=== PATIENT | female | born 1940 | race Caucasian/White ===

== ENCOUNTER 2016-12-17 09:33 | Emergency (ER) | payer MEDICARE, MEDICAID ==
[2016-12-17 09:37] VITALS: BMI 25.4
[2016-12-17 09:47] VITALS: O2SAT 99
[2016-12-17] MEDS ORDERED: Albuterol-Ipratrop 3 mg / 0.5 (3 ml) UD ONE (10:09)
[2016-12-17] MEDS ORDERED: Sodium Chloride 0.9% 500 ML IV ONE ×2 (10:14→10:37)
[2016-12-17] MEDS ORDERED: Albuterol-Ipratrop 3 mg / 0.5 (3 ml) UD INH STA (10:17)
[2016-12-17 10:34] LABS: BASO # 0.1 K/uL (0.0-0.2); EOS % 0.4 % (0.0-4.0); HEMATOCRIT 40.1 % (34.0-47.0); LYMPH # 1.4 K/uL (1.0-4.3); LYMPH % 14.9 % (20.0-40.0); MEAN CELL VOLUME 98.7 fL (81.0-99.0); MEAN CORPUSCULAR HEMOGLOBIN 33.2 pg (27.0-31.0); MEAN CORPUSCULAR HGB CONC 33.6 g/dL (33.0-37.0); MONO # 0.4 K/uL (0.0-0.8); MONO % 4.6 % (0.0-10.0); RED CELL DISTRIBUTION WIDTH 13.2 % (11.5-14.5); WHITE BLOOD COUNT 9.4 K/uL (4.8-10.8)
[2016-12-17 10:41] LABS: CHLORIDE 96 mmol/L (98-107)
[2016-12-17 10:42] LABS: POTASSIUM 3.7 mmol/L (3.6-5.2); SODIUM 135 mmol/L (132-148)
[2016-12-17 10:44] LABS: ALB/GLOB RATIO 1.1 (1.0-2.1); ALKALINE PHOSPHATASE 117 U/L (38-126); AST/SGOT 65 U/L (14-36); BILIRUBIN,TOTAL 0.4 mg/dL (0.2-1.3); CARBON DIOXIDE 24 mmol/L (22-30); GFR AFRICAN-AMERICAN > 60; TOTAL PROTEIN 7.6 g/dL (6.3-8.3)
[2016-12-17 10:45] LABS: ALT/SGPT 89 U/L (9-52); BLOOD UREA NITROGEN 10 mg/dL (7-17); CALCIUM 8.5 mg/dl (8.6-10.4); GLUCOSE,RANDOM 300 mg/dL (65-105)
[2016-12-17 11:24] LABS: RBC URINE 1 /hpf (0-3); URINE BILIRUBIN NEGATIVE (NEGATIVE); URINE BLOOD NEGATIVE (NEGATIVE); URINE COLOR Yellow (YELLOW); URINE GLUCOSE (UA) 3+ mg/dL (Normal); URINE KETONE NEGATIVE (NEGATIVE); URINE LEUKOCYTE ESTERASE NEG Leu/uL (Negative); URINE PROTEIN NEGATIVE (NEGATIVE); URINE UROBILINOGEN NORMAL mg/dL (0.2-1.0); WBC URINE 1 /hpf (0-5)
--- NOTE | 2016-12-17 12:05 | C.PDOC ---
History Of Present Illness 76-year-old female, PMHx includes Hypertension, Bronchitis, Diabetes and Pneumonia, presents to the emergency department accompanied by son (acting as tester food products) with complaints of cough and congestion for the past three days. Patient states she has a Hx of bronchitis and her current symptoms feel similar. Denies fevers or chest pain. Time Seen by Provider: 12/17/16 10:05 Chief Complaint (Nursing): Back Pain History Per: Patient, Family, Maple Syrup Maker (Son, and RN Ruth) History/Exam Limitations: language barrier Onset/Duration Of Symptoms: Days Current Symptoms Are (Timing): Still Present Past Medical History Reviewed: Historical Data, Nursing Documentation, Vital Signs Vital Signs: Last Vital Signs Temp 98.5 F 12/17/16 12:00 Pulse 80 12/17/16 12:00 Resp 18 12/17/16 12:00 BP 132/87 12/17/16 12:00 Pulse Ox 99 12/17/16 12:40 - Medical History PMH: Bronchitis, Diabetes, HTN, Pneumonia Family History: States: Unknown Family Hx - Social History Hx Tobacco Use: No Hx Alcohol Use: No Hx Substance Use: No - Immunization History Hx Tetanus Toxoid Vaccination: Yes Hx Influenza Vaccination: Yes Hx Pneumococcal Vaccination: Yes Review Of Systems Except As Marked, All Systems Reviewed And Found Negative. Constitutional: Negative for: Fever ENT: Positive for: Nose Congestion Cardiovascular: Negative for: Chest Pain Respiratory: Positive for: Cough, Shortness of Breath Gastrointestinal: Negative for: Nausea, Vomiting Musculoskeletal: Negative for: Back Pain Physical Exam - Physical Exam Appears: Non-toxic, No Acute Distress Skin: Warm, Dry, No Rash Head: Atraumatic, Normacephalic Eye(s): bilateral: Normal Inspection, EOMI Nose: Normal Oral Mucosa: Moist Lips: Normal Appearing Throat: Normal, No Erythema, No Exudate, No Drooling Neck: Normal ROM, Supple Chest: Symmetrical Cardiovascular: Rhythm Regular Respiratory: No Accessory Muscle Use, Rhonchi, Other (intermittent cough) Gastrointestinal/Abdominal: Soft, No Tenderness Back: No CVA Tenderness, No Vertebral Tenderness Extremity: Normal ROM Neurological/Psych: Oriented x3, Normal Speech ED Course And Treatment - Laboratory Results Result Diagrams: 12/17/16 10:27 12/17/16 10:27 ECG: Interpreted By Me, Viewed By Me ECG Rhythm: Sinus Rhythm ECG Interpretation: No Acute Changes Rate From EC O2 Sat by Pulse Oximetry: 99 Progress Note: Plan: EKG. Chest X-Ray. Duoneb, IVF. Urine Culture. Progress : Patient feels better after treatment. On re-evaluated, patients lungs are CTA B/L. Patient was offered admission for further nebulizers, but she is refusing at this time. Son and Maple Syrup Maker used to translate. Patient persists to refuse. Patient instructed to return for any new or worsening symptoms. All questions were answered. Pt and son agreeable with plan. Case discussed and pt evaluated by Dr Baker, agreed upon plan and discharge. Disposition - Disposition Disposition: HOME/ ROUTINE Disposition Time: 12:01 Condition: STABLE Additional Instructions: Vaya a johnson mdico o la clnica en 2-5 sharp sin falta, para mas evaluacin. [place] los medicamentos yudelka indicado. Volver a la ernesto de emergencia en cualquier momento si los sntomas persisten o empeoran. Prescriptions: Albuterol HFA [Ventolin HFA 90 mcg/actuation (8 g)] 2 puff IH [id number] #1 puff Azithromycin [Z-Amador] 250 mg PO DAILY #6 tab predniSONE [Prednisone] 40 mg PO DAILY #8 tab Instructions: Acute Bronchitis (ED) Print Language: FAROESE - Clinical Impression Clinical Impression: Bronchitis - Scribe Statement The provider has reviewed the documentation as recorded by the Scribreese Jones All medical record entries made by the Scribe were at my direction and personally dictated by me. I have reviewed the chart and agree that the record accurately reflects my personal performance of the history, physical exam, medical decision making, and the department course for this patient. I have also personally directed, reviewed, and agree with the discharge instructions and disposition.
[2016-12-17 12:07] VITALS: BP 132/87; PULSE 80; RESP 18; TEMP 98.5
--- NOTE | 2016-12-17 15:18 | RAD ---
HISTORY: SOB COMPARISON: 07/14/2016 TECHNIQUE: Chest PA and lateral FINDINGS: LUNGS: No active pulmonary disease. PLEURA: No significant pleural effusion identified. No pneumothorax apparent. CARDIOVASCULAR: Please note that the frontal view is mislabeled regarding right versus left side. OSSEOUS STRUCTURES: No significant abnormalities. VISUALIZED UPPER ABDOMEN: Normal. OTHER FINDINGS: None. IMPRESSION: No active disease.
--- NOTE | 2016-12-18 16:18 | CARD ---
APPROVED REPORT EKG Measurement Heart [id number] <Conclusion> Normal sinus rhythm Prolonged QT Abnormal ECG
== END 2016-12-17 12:17 | disposition home or self-care (01) ==
LOC: C.ER 09:33
DX: J40 Bronchitis, not specified as acute or chronic (principal)
CPT/HCPCS: 71020; 80053; 81001; 82550; 82553; 83880; 84484; 85025; 87086; 93005; 94640; 99284; J7040

== ENCOUNTER 2017-09-09 09:36 | Emergency (ER) | payer MEDICARE, MEDICAID ==
[2017-09-09 09:37] VITALS: BMI 25.4
[2017-09-09 09:43] VITALS: TEMP 97.8
--- NOTE | 2017-09-09 12:25 | CT ---
PROCEDURE: CT HEAD WITHOUT CONTRAST. HISTORY: "ringing in head" . Headache. COMPARISON: 02/03/2012 TECHNIQUE: Axial computed tomography images were obtained through the head/brain without intravenous contrast. Radiation dose: Total exam DLP = 742 mGy-cm. This CT exam was performed using one or more of the following dose reduction techniques: Automated exposure control, adjustment of the mA and/or kV according to patient size, and/or use of iterative reconstruction technique. FINDINGS: HEMORRHAGE: No intracranial hemorrhage. BRAIN: No mass effect or edema. Scattered focal lucencies in the subcortical and periventricular white matter suggestive for chronic microvascular ischemic change. Punctate lacunar infarct seen at the junction of the right caudate head/anterior limb of the right internal capsule. Punctate left basal ganglia lacunar infarct. VENTRICLES: Unremarkable. No hydrocephalus. CALVARIUM: Unremarkable. PARANASAL SINUSES: 1.2 centimeter calcified osteoma at the anterior left ethmoid air cells. MASTOID AIR CELLS: Unremarkable as visualized. No inflammatory changes. OTHER FINDINGS: None. IMPRESSION: Chronic microvascular ischemic changes. Small lacunar infarcts in the right caudate head/anterior limb of the right internal capsule and left basal ganglia. 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 If focal neurologic deficit persists, consider MRI.
[2017-09-09 12:29] VITALS: BP 133/79; PULSE 67; RESP 20
[2017-09-09 12:31] VITALS: O2SAT 99
--- NOTE | 2017-09-09 12:31 | C.PDOC ---
History Of Present Illness 77-year-old female presents to the emergency department with complaints of hearing a buzzing sound in her head for the last 4-5 days, when she is trying to sleep. States she is having difficulty sleeping because of it. Patient notes having similar symptoms about twenty years ago, which resolved on their own. Patient denies headache, visual changes, slurred speech, facial droop, extremity weakness, sensory changes, chest pain, shortness of breath, palpitations, trauma/injuries, ear pain, fever, neck pain. Time Seen by Provider: 09/09/17 09:50 Chief Complaint (Nursing): Medical Clearance History Per: Patient, Family History/Exam Limitations: no limitations Onset/Duration Of Symptoms: Days Current Symptoms Are (Timing): Still Present Severity: Mild Past Medical History Reviewed: Historical Data, Nursing Documentation, Vital Signs Vital Signs: Last Vital Signs Temp 97.8 F 09/09/17 09:41 Pulse 67 09/09/17 12:15 Resp 20 09/09/17 12:15 BP 133/79 09/09/17 12:15 Pulse Ox 99 09/09/17 14:21 - Medical History PMH: Bronchitis, COPD, Diabetes, HTN, Pneumonia Family History: States: No Known Family Hx - Social History Hx Tobacco Use: No Hx Alcohol Use: No Hx Substance Use: No - Immunization History Hx Tetanus Toxoid Vaccination: Yes Hx Influenza Vaccination: No Hx Pneumococcal Vaccination: No Review Of Systems Except As Marked, All Systems Reviewed And Found Negative. Constitutional: Negative for: Fever, Chills Cardiovascular: Negative for: Chest Pain, Palpitations Respiratory: Negative for: Cough, Shortness of Breath Gastrointestinal: Negative for: Nausea, Vomiting, Abdominal Pain, Diarrhea Musculoskeletal: Negative for: Neck Pain Neurological: Positive for: Other (buzzing sound). Negative for: Weakness, Numbness, Incoordination, Change in Speech, Confusion, Altered Mental Status, Headache, Dizziness Physical Exam - Physical Exam Appears: Well, Non-toxic, No Acute Distress, Other (bizarre affect) Skin: Warm, Dry, No Rash Head: Atraumatic, Normacephalic Eye(s): bilateral: Normal Inspection, PERRL, EOMI Ear(s): Bilateral: Normal (no mastoid TTP, no discharge) Nose: Normal Oral Mucosa: Moist Tongue: Normal Appearing Lips: Normal Appearing Throat: Normal, No Erythema, No Exudate, No Drooling Neck: Normal, Normal ROM, Supple Cardiovascular: Rhythm Regular Respiratory: Normal Breath Sounds, No Rales, No Rhonchi, No Wheezing Gastrointestinal/Abdominal: Normal Exam, Bowel Sounds, Soft, No Tenderness Extremity: Normal ROM, No Tenderness, No Calf Tenderness, No Deformity Extremity: Bilateral: Atraumatic, Normal Color And Temperature, Normal ROM Neurological/Psych: Oriented x3, Normal Speech, Normal Cognition, Normal Cranial Nerves, No Cerebellar Signs, Normal Motor, Normal Sensation Gait: Steady ED Course And Treatment O2 Sat by Pulse Oximetry: 99 (on RA) Pulse Ox Interpretation: Normal Progress Note: CT head ordered and reviewed. Patients accucheck is 241. Reevaluation Time: 12:30 Reassessment Condition: Improved (Patient reassessed, is resting comfortably, in no pain or distress. She denies current active symptoms, and has normal neurologicalk exam and no symptoms on TIA/CVA/seizure. Patient instructed to follow up with neurology within 1 week, and she understands she should return to ED if symptoms worsen.) Disposition Counseled Patient/Family Regarding: Studies Performed, Diagnosis, Need For Followup, Rx Given - Disposition Referrals: Ran Ag MD [Medical Doctor] - Tico Paul MD [Staff Provider] - Disposition: HOME/ ROUTINE Disposition Time: 12:30 Condition: STABLE Additional Instructions: SIGA CON MUNIZ DOCTOR LOY SEGN MUNIZ CALENDARIO SHABBIR ASPIRINA DIARIAMENTE SEGUIR CON NEUROLOGA DENTRO DE 1 SEMANA Prescriptions: Aspirin [Ecotrin] 81 mg PO DAILY #30 tablet.dr Forms: [employer] (Hebrew), General Discharge Instructions Print Language: POLISH - Clinical Impression Clinical Impression: Medical assessment - Scribe Statement The provider has reviewed the documentation as recorded by the Scribe (Chang Jones) All medical record entries made by the Scribe were at my direction and personally dictated by me. I have reviewed the chart and agree that the record accurately reflects my personal performance of the history, physical exam, medical decision making, and the department course for this patient. I have also personally directed, reviewed, and agree with the discharge instructions and disposition.
== END 2017-09-09 12:42 | disposition home or self-care (01) ==
LOC: C.ER 09:36
DX: Z00.00 Encounter for general adult medical examination without abnormal findings (principal)

== ENCOUNTER 2017-10-02 23:28 | Emergency (ER) | payer MEDICARE, MEDICAID ==
[2017-10-02 23:29] VITALS: BMI 25.4
[2017-10-02 23:38] VITALS: O2SAT 98
[2017-10-03] MEDS: Albuterol-Ipratrop 3 mg / 0.5 (3 ml) UD IH SCH ×2 (00:10→00:25)
--- NOTE | 2017-10-03 00:22 | C.PDOC ---
History Of Present Illness 77 y/o female presents to ED with c/o having a cough associated with chest pain only when coughing and white phlegm that began 1 week ago. Denies SOB, fever, nausea, vomiting and usage of nebulizer at home. Patient took Tylenol for relief. Patient has Hx of smoking. Time Seen by Provider: 10/02/17 23:46 Chief Complaint (Nursing): Cough, Cold, Congestion History Per: Patient History/Exam Limitations: no limitations Onset/Duration Of Symptoms: Days (7) Current Symptoms Are (Timing): Still Present Recent travel outside of the [place]: No Past Medical History Reviewed: Historical Data, Nursing Documentation, Vital Signs Vital Signs: Last Vital Signs Temp 98.3 F 10/02/17 23:35 Pulse 88 10/02/17 23:35 Resp 20 10/02/17 23:35 BP 143/90 10/02/17 23:35 Pulse Ox 98 10/03/17 00:25 - Medical History PMH: Bronchitis, COPD, Diabetes, HTN, Pneumonia Surgical History: No Surg Hx Family History: States: No Known Family Hx Other Family History: nc - Social History Hx Tobacco Use: No Hx Alcohol Use: No Hx Substance Use: No - Immunization History Hx Tetanus Toxoid Vaccination: Yes Hx Influenza Vaccination: No Hx Pneumococcal Vaccination: No Review Of Systems Constitutional: Negative for: Fever, Chills Cardiovascular: Positive for: Chest Pain (Only when coughing). Negative for: Palpitations Respiratory: Positive for: Cough (with white phlegm). Negative for: Shortness of Breath Gastrointestinal: Negative for: Nausea, Vomiting, Abdominal Pain, Diarrhea Neurological: Negative for: Weakness, Numbness Physical Exam - Physical Exam Appears: Well, Non-toxic Skin: Warm, Dry Head: Atraumatic Eye(s): bilateral: PERRL Oral Mucosa: Moist Neck: Supple Chest: Symmetrical, No Tenderness Cardiovascular: Rhythm Regular Respiratory: No Decreased Breath Sounds, No Accessory Muscle Use, No Rales, No Rhonchi, Wheezing (Bilateral) Gastrointestinal/Abdominal: Soft, No Tenderness, No Guarding, No Rebound Extremity: No Swelling Neurological/Psych: Oriented x3, Other (No focal deficits) ED Course And Treatment O2 Sat by Pulse Oximetry: 98 (Room air) Pulse Ox Interpretation: Normal Medical Decision Making Medical Decision Makin pt says she is feeling much better and is asking to be discharged. Disposition - Disposition Disposition: HOME/ ROUTINE Disposition Time: 00:59 Condition: IMPROVED Forms: [employer] (Armenian) - Clinical Impression Clinical Impression: Bronchitis - Scribe Statement The provider has reviewed the documentation as recorded by the Ferchoibe Violette Sanchez All medical record entries made by the Ferchoibe were at my direction and personally dictated by me. I have reviewed the chart and agree that the record accurately reflects my personal performance of the history, physical exam, medical decision making, and the department course for this patient. I have also personally directed, reviewed, and agree with the discharge instructions and disposition.
[2017-10-03 01:18] VITALS: BP 159/87; PULSE 70; RESP 19; TEMP 98.4
--- NOTE | 2017-10-03 10:49 | RAD ---
HISTORY: cough COMPARISON: No prior. TECHNIQUE: Chest PA and lateral FINDINGS: LUNGS: The interstitial markings are slightly increased and coarsened with a few scattered peribronchial cuffing changes. Findings suggest sequela of reactive/inflammatory airway disease or viral illness. There may also be some mild bibasilar atelectasis and/or chronic scarring. . PLEURA: No significant pleural effusion identified. No pneumothorax apparent. CARDIOVASCULAR: Heart appears borderline/mildly enlarged. The aorta is ectatic and uncoiled. OSSEOUS STRUCTURES: Very minor multilevel degenerative spondylosis of the thoracic spine VISUALIZED UPPER ABDOMEN: Normal. OTHER FINDINGS: None. IMPRESSION: The interstitial markings are slightly increased and coarsened with a few scattered peribronchial cuffing changes. Findings suggest sequela of reactive/inflammatory airway disease or viral illness. There may also be some mild bibasilar atelectasis and/or chronic scarring.
== END 2017-10-03 01:23 | disposition home or self-care (01) ==
LOC: C.ER 23:28
DX: J40 Bronchitis, not specified as acute or chronic (principal)

== ENCOUNTER 2017-10-15 10:42 | Emergency (ER) | payer MEDICARE, MEDICAID ==
[2017-10-15 10:43] VITALS: BMI 25.4
[2017-10-15 11:03] VITALS: RESP 18
[2017-10-15 12:15] LABS: SQUAMOUS EPITHIAL 1 /hpf (0-5); URINE BACTERIA RARE (<OCC); URINE BILIRUBIN NEGATIVE (NEGATIVE); URINE BLOOD NEGATIVE (NEGATIVE); URINE CLARITY Clear (Clear); URINE COLOR Yellow (YELLOW); URINE GLUCOSE (UA) 3+ mg/dL (Normal); URINE LEUKOCYTE ESTERASE 2+ Leu/uL (Negative); URINE NITRATE NEGATIVE (NEGATIVE); URINE PROTEIN NEGATIVE (NEGATIVE); URINE UROBILINOGEN NORMAL mg/dL (0.2-1.0)
--- NOTE | 2017-10-15 13:09 | C.PDOC ---
History Of Present Illness 77-year-old female, PMHx includes diabetes compliant with medication, presents to the emergency department with complaints of itching to vaginal area. Patient denies any vaginal bleeding , dysuria/hematuria. Denies any recent sexual intercourse. No vomiting, diarrhea, fever. Time Seen by Provider: 10/15/17 12:21 Chief Complaint (Nursing): Female Genitourinary History Per: Patient History/Exam Limitations: no limitations Onset/Duration Of Symptoms: Days Current Symptoms Are (Timing): Still Present Severity: Moderate Past Medical History Reviewed: Historical Data, Nursing Documentation, Vital Signs Vital Signs: Last Vital Signs Temp 98.4 F 10/15/17 13:32 Pulse 89 10/15/17 13:32 Resp 18 10/15/17 13:32 BP 112/79 10/15/17 13:32 Pulse Ox 100 10/15/17 13:32 - Medical History PMH: Bronchitis, COPD, Diabetes, HTN, Pneumonia Family History: States: No Known Family Hx - Social History Hx Tobacco Use: No Hx Alcohol Use: No Hx Substance Use: No - Immunization History Hx Tetanus Toxoid Vaccination: Yes Hx Influenza Vaccination: No Hx Pneumococcal Vaccination: No Review Of Systems Except As Marked, All Systems Reviewed And Found Negative. Constitutional: Negative for: Fever, Chills Respiratory: Negative for: Shortness of Breath Gastrointestinal: Negative for: Nausea, Vomiting, Abdominal Pain Genitourinary: Positive for: Vaginal Discharge (itching). Negative for: Dysuria , Frequency, Vaginal Bleeding, Pelvic Pain Skin: Negative for: Rash Neurological: Negative for: Weakness, Headache, Dizziness Physical Exam - Physical Exam Appears: Non-toxic, No Acute Distress Skin: Warm, Dry, No Rash Head: Atraumatic, Normacephalic Eye(s): bilateral: Normal Inspection, PERRL Nose: Normal Oral Mucosa: Moist Lips: Normal Appearing Neck: Normal ROM Chest: Symmetrical Cardiovascular: Rhythm Regular, No Murmur Respiratory: Normal Breath Sounds, No Accessory Muscle Use Pelvic: Vaginal Discharge ((+)cottage cheese, wih pink irritation to vulvular area.) Extremity: Normal ROM Neurological/Psych: Oriented x3, Normal Speech ED Course And Treatment O2 Sat by Pulse Oximetry: 95 (on RA) Pulse Ox Interpretation: Normal Medical Decision Making Medical Decision Making: Patients blood sugar is 344, but she did not take her medication this morning. States she will take it when she goes home. Patient will be discharged with Rx for Diflucan, and cream to apply to vaginal area. Disposition - Disposition Referrals: [facility] [Outside] Disposition: HOME/ ROUTINE Disposition Time: 13:06 Condition: GOOD Additional Instructions: Follow up with the medical doctor/clinic within 1-2 days without fail. Return if worsened. Prescriptions: Fluconazole [Diflucan] 150 mg PO ONCE #2 tab Miconazole 2% Vaginal [Monistat 7 Vaginal Cream] 1 ea TOP BID #2 tube Instructions: Vulvovaginal Candidiasis (ED) Forms: [employer] (Burkinan) Print Language: ESTONIAN - Clinical Impression Clinical Impression: Vulvovaginal candidiasis - Scribe Statement The provider has reviewed the documentation as recorded by the Scribe (Chang Jones) All medical record entries made by the Scribe were at my direction and personally dictated by me. I have reviewed the chart and agree that the record accurately reflects my personal performance of the history, physical exam, medical decision making, and the department course for this patient. I have also personally directed, reviewed, and agree with the discharge instructions and disposition.
[2017-10-15 13:32] VITALS: BP 112/79; PULSE 89; TEMP 98.4
[2017-10-15 13:49] VITALS: O2SAT 95
== END 2017-10-15 13:38 | disposition home or self-care (01) ==
LOC: C.ER 10:42
DX: B37.3 Candidiasis of vulva and vagina (principal)

== ENCOUNTER 2017-11-20 13:14 | Emergency (ER) | payer MEDICARE, OTHER ==
[2017-11-20 13:14] VITALS: BMI 25.4
--- NOTE | 2017-11-20 15:46 | C.PDOC ---
History Of Present Illness 77 y/o female with history of Diabetes and HTN presents to ED with complaints of left lower leg "pinching" pain since last night. Patient reports pain to front and back of leg but denies history of DVT, swelling, change in color, chest pain or shortness of breath. Time Seen by Provider: 11/20/17 14:46 Chief Complaint (Nursing): Lower Extremity Problem/Injury History Per: Patient History/Exam Limitations: no limitations Onset/Duration Of Symptoms: Days Current Symptoms Are (Timing): Still Present Past Medical History Reviewed: Historical Data, Nursing Documentation, Vital Signs Vital Signs: Last Vital Signs Temp 98.1 F 11/20/17 13:46 Pulse 88 11/20/17 13:46 Resp 20 11/20/17 13:46 BP 139/86 11/20/17 13:46 Pulse Ox 100 11/20/17 15:54 - Medical History PMH: Bronchitis, COPD, Diabetes, HTN, Pneumonia Surgical History: No Surg Hx Family History: States: No Known Family Hx - Social History Hx Tobacco Use: No Hx Alcohol Use: No Hx Substance Use: No - Immunization History Hx Tetanus Toxoid Vaccination: Yes Hx Influenza Vaccination: No Hx Pneumococcal Vaccination: No Review Of Systems Constitutional: Negative for: Fever, Chills Cardiovascular: Negative for: Chest Pain Respiratory: Negative for: Shortness of Breath Gastrointestinal: Negative for: Nausea, Vomiting Musculoskeletal: Positive for: Leg Pain Skin: Negative for: Rash Neurological: Negative for: Weakness, Numbness Physical Exam - Physical Exam Appears: Non-toxic, No Acute Distress Skin: Warm, Dry, No Rash Head: Atraumatic, Normacephalic Eye(s): bilateral: Normal Inspection Oral Mucosa: Moist Neck: Normal ROM, Supple Cardiovascular: Rhythm Regular, No Murmur Respiratory: Normal Breath Sounds, No Rales, No Rhonchi, No Stridor, No Wheezing Extremity: Tenderness (Mild to distal anterior tibial region), No Calf Tenderness, No Deformity, Other ([place] veins and spider veins bilaterally) Extremity: Bilateral: Atraumatic Neurological/Psych: Oriented x3, Normal Speech Gait: Steady ED Course And Treatment O2 Sat by Pulse Oximetry: 100 (RA) Pulse Ox Interpretation: Normal Medical Decision Making Medical Decision Making: Doppler Venous ordered Doppler negative for DVT or abnormality Patient afebrile alert and oriented in no distress. She is ambulatory without signs of discomfort. no clinical signs of cellulitis. Symptoms can be related to neuropathy. recommend analgesics and to follow up with PCP Disposition Counseled Patient/Family Regarding: Diagnosis, Need For Followup, Rx Given - Disposition Referrals: Calvin Benavides MD [Staff Provider] - Disposition: HOME/ ROUTINE Disposition Time: 15:45 Condition: GOOD Additional Instructions: Lajas medicamentos diariamente para ayudar con los sntomas de dolor nervioso. Tambin puede delvin Tylenol o Advil sin receta mdica. Lorelei un seguimiento con johnson mdico primario o clnica en 1 semana para eunice evaluacin adicional. Prescriptions: Gabapentin 300 mg PO DAILY #20 capsule Instructions: Diabetic Neuropathy (DC) Forms: [employer] (Kiswahili) Print Language: PRYDEINIG - POA Present On Arrival: None - Clinical Impression Clinical Impression: Diabetic neuropathy - PA / GLOBAL CONSUMER SECTOR VICE PRESIDENT / Resident Statement MD/DO has reviewed & agrees with the documentation as recorded. - Scribe Statement The provider has reviewed the documentation as recorded by the Harman Sosa All medical record entries made by the Harman were at my direction and personally dictated by me. I have reviewed the chart and agree that the record accurately reflects my personal performance of the history, physical exam, medical decision making, and the department course for this patient. I have also personally directed, reviewed, and agree with the discharge instructions and disposition.
[2017-11-20 16:17] VITALS: BP 144/82; PULSE 82; RESP 18; TEMP 98
[2017-11-20 19:33] VITALS: O2SAT 100
--- NOTE | 2017-11-21 13:50 | VASCLAB ---
PROCEDURE: Left Lower Extremity Venous Duplex Exam. HISTORY: left leg pain PRIORS: None. TECHNIQUE: Left common femoral, femoral, popliteal and posterior tibial, peroneal and great saphenous veins were evaluated. Flow was assessed with color Doppler, compressibility, assessment of phasic flow and augmentation response. Report prepared by BLAIR Andres, RVT FINDINGS: LEFT: 1. Common Femoral Vein: 1.1. Compressibility - Fully compressible: Thrombus - None : Flow - Phasic: Augmentation -Normal: Reflux - None. 2. Femoral Vein: 2.1. Compressibility - Fully compressible: Thrombus - None: Flow - Phasic: Augmentation -Normal: Reflux - None. 3. Popliteal Vein: 3.1. Compressibility - Fully compressible: Thrombus - None: Flow - Phasic: Augmentation -Normal: Reflux - None. 4. Posterior Tibial Vein: 4.1. Compressibility - Fully compressible: Thrombus - None: Flow - Phasic: Augmentation -Normal: Reflux - None. 5. Peroneal Vein: 5.1. Compressibility - Fully compressible: Thrombus - None: Flow - Phasic: Augmentation -Normal: Reflux - None. 6. Great Saphenous Vein: 6.1. Compressibility - Fully compressible: Thrombus - None: Flow - Phasic: Augmentation - Normal: Reflux - Severe. OTHER FINDINGS: IMPRESSION: No evidence of deep or superficial vein thrombosis of the left lower extremity with excellent venous flow. Severe valvular incompetence of the left greater saphenous vein. Normal venous flow noted in the right common femoral vein.
== END 2017-11-20 16:17 | disposition home or self-care (01) ==
LOC: C.ER 13:14
DX: E11.40 Type 2 diabetes mellitus with diabetic neuropathy, unspecified (principal); I10 Essential (primary) hypertension

== ENCOUNTER 2018-01-05 10:29 | Emergency (ER) | payer MEDICARE, OTHER ==
[2018-01-05 10:33] VITALS: BMI 21.9
[2018-01-05 10:35] VITALS: RESP 18
--- NOTE | 2018-01-05 11:30 | C.PDOC ---
History Of Present Illness 77 y/o female with niddm presents with vaginal itching for last week. pt reports compliance with medication. denies dysuriia, c/o urinary frequency. denies abdominal pain. pt reports it feels the same as last time she was seen for this, not sexually active. Time Seen by Provider: 01/05/18 11:03 Chief Complaint (Nursing): Female Genitourinary History Per: Patient History/Exam Limitations: no limitations Onset/Duration Of Symptoms: Days (7) Current Symptoms Are (Timing): Still Present Severity: Moderate Quality Of Discomfort: Other (itching) Associated Symptoms: Urinary Symptoms (frequency). denies: Nausea, Vomiting Past Medical History Reviewed: Historical Data, Nursing Documentation, Vital Signs Vital Signs: Last Vital Signs Temp 98.7 F 01/05/18 12:25 Pulse 83 01/05/18 12:25 Resp 18 01/05/18 12:25 BP 124/87 01/05/18 12:25 Pulse Ox 99 01/05/18 22:24 - Medical History PMH: Bronchitis, COPD, Diabetes, HTN, Pneumonia Family History: States: Unknown Family Hx - Social History Hx Tobacco Use: No Hx Alcohol Use: No Hx Substance Use: No - Immunization History Hx Tetanus Toxoid Vaccination: No Hx Influenza Vaccination: No Hx Pneumococcal Vaccination: No Review Of Systems Constitutional: Negative for: Fever, Chills Gastrointestinal: Negative for: Nausea, Vomiting, Abdominal Pain Genitourinary: Positive for: Vaginal Discharge (white). Negative for: Pelvic Pain Physical Exam - Physical Exam Appears: No Acute Distress Skin: Warm, Dry Gastrointestinal/Abdominal: Bowel Sounds, Soft, No Tenderness Pelvic: Normal Bimanual Exam, No Vaginal Bleeding, No Adnexal Tenderness, Other (labia minora bilaterally mildly erythematous with whitish discharge noted. ) Neurological/Psych: Oriented x3, Normal Speech, Normal Cognition ED Course And Treatment O2 Sat by Pulse Oximetry: 99 Medical Decision Making Medical Decision Making: pt with vulvovaginal candidiasis. bs is 264 in ed. pt has appt with pmd this week and advised to discuss medications for dm with pmd to get better bs control. no sign of urine infection, there is yeast seen in urine. will tx for vulvuovaginal candidasis. Disposition Counseled Patient/Family Regarding: Studies Performed, Diagnosis, Need For Followup, Rx Given - Disposition Referrals: Ran Ag MD [Medical Doctor] - Disposition: HOME/ ROUTINE Disposition Time: 12:12 Condition: GOOD Additional Instructions: Por favor cammie un seguimiento con johnson mdico esta semana y evale marquise medicamentos para la diabetes; johnson azcar es 264 aqu en ER y usted tiene eunice infeccin vaginal por hongos. Necesita un mejor control de marquise niveles de az car en la gael. [place] medicamentos segn lo recetado. Please follow up with your doctor this week and have your medications for diabetes evaluated; your sugar is 264 here in ER and you have a vaginal yeast infection. You need better control of your blood sugars. Take medicaitons as prescribed. Prescriptions: Miconazole/Cleanser 17 On Wipe [Monistat 7 Combination Pack] 1 each VG HS #1 kit Instructions: Vaginal Yeast Infection (DC) Forms: Gen Discharge Inst Belarusian, [facility] (Belarusian) Print Language: FRENCH - Clinical Impression Clinical Impression: Vulvovaginal candidiasis
[2018-01-05 11:51] LABS: URINE BILIRUBIN NEGATIVE (NEGATIVE); URINE BLOOD 1+ (NEGATIVE); URINE CLARITY Clear (Clear); URINE COLOR Yellow (YELLOW); URINE GLUCOSE (UA) 3+ mg/dL (Normal); URINE LEUKOCYTE ESTERASE TRACE Leu/uL (Negative); URINE PROTEIN NEGATIVE (NEGATIVE); URINE UROBILINOGEN NORMAL mg/dL (0.2-1.0)
[2018-01-05 12:08] LABS: SQUAMOUS EPITHIAL 3 /hpf (0-5); URINE BACTERIA RARE (<OCC)
[2018-01-05 12:26] VITALS: BP 124/87; PULSE 83; TEMP 98.7
[2018-01-05 22:24] VITALS: O2SAT 99
== END 2018-01-05 12:25 | disposition home or self-care (01) ==
LOC: C.ER 10:29
DX: B37.3 Candidiasis of vulva and vagina (principal); E11.9 Type 2 diabetes mellitus without complications

== ENCOUNTER 2018-06-21 23:56 | Emergency (ER) | payer MEDICARE, OTHER ==
[2018-06-21 23:58] VITALS: BMI 21.9
[2018-06-22 00:15] VITALS: TEMP 98.7; O2SAT 97
--- NOTE | 2018-06-22 00:28 | C.PDOC ---
History Of Present Illness 78 y/o F, NIDDM, comes in complaining of cough, headache, chest congestion, and whitish sputum. States she has not been checking her sugar. Time Seen by Provider: 06/22/18 00:28 Chief Complaint (Nursing): Shortness Of Breath History Per: Patient History/Exam Limitations: no limitations Onset/Duration Of Symptoms: Days Current Symptoms Are (Timing): Still Present Severity: Moderate Pain Scale Rating Of: 4 Recent travel outside of the [place]: No Past Medical History Reviewed: Historical Data, Nursing Documentation, Vital Signs Vital Signs: Last Vital Signs Temp 98.7 F 06/22/18 00:04 Pulse 91 H 06/22/18 00:04 Resp 18 06/22/18 00:16 BP 166/91 H 06/22/18 00:04 Pulse Ox 97 06/22/18 00:04 - Medical History PMH: Bronchitis, COPD, Diabetes, HTN, Pneumonia Family History: States: No Known Family Hx - Social History Hx Tobacco Use: No Hx Alcohol Use: No Hx Substance Use: No - Immunization History Hx Tetanus Toxoid Vaccination: No Hx Influenza Vaccination: Yes Hx Pneumococcal Vaccination: No Review Of Systems Constitutional: Negative for: Fever, Chills Respiratory: Positive for: Cough, Sputum (whitish) Gastrointestinal: Negative for: Nausea, Vomiting, Diarrhea Neurological: Positive for: Headache Physical Exam - Physical Exam Appears: Non-toxic, No Acute Distress Skin: Warm, Dry Head: Normacephalic Eye(s): bilateral: Normal Inspection Oral Mucosa: Moist Cardiovascular: Rhythm Regular Respiratory: Rhonchi, Wheezing (bilaterally) Extremity: Bilateral: Normal Color And Temperature Neurological/Psych: Oriented x3 Gait: Steady ED Course And Treatment - Laboratory Results Result Diagrams: 06/22/18 00:49 06/22/18 00:49 ECG: Interpreted By Me, Viewed By Me ECG Rhythm: Sinus Rhythm (84), Nonspecific Changes O2 Sat by Pulse Oximetry: 97 (RA) Pulse Ox Interpretation: Normal - Radiology CXR: Interpreted by Me, Viewed By Me CXR Interpretation: No: Infiltrates, Fracture, Pnemothorax Progress Note: EKG, labs, chest x-ray, and urinalysis ordered. Medical Decision Making Medical Decision Making: Upon provider reevaluation patient is feeling better, is medically stable, and requires no further treatment in the ED at this time. Patient will be discharged home with Rx for zithromax . Counseling was provided and all questions were answered regarding diagnosis and need for follow up with the referred clinic. There is agreement to discharge plan. Return if symptoms persist or worsen. Disposition Counseled Patient/Family Regarding: Studies Performed, Diagnosis, Need For Followup, Rx Given - Disposition [facility]errals: [facility] [Outside] [facility] [Outside] Disposition: HOME/ ROUTINE Disposition Time: 00:28 Condition: FAIR Additional Instructions: Please return if symptoms recur Prescriptions: Azithromycin [Zithromax Tri-Amador] 500 mg PO DAILY #3 tab Instructions: Upper Respiratory Infection (ED) Forms: [employer], (Bengali) Print Language: MONGOLIAN - Clinical Impression Clinical Impression: Respiratory tract infection - Scribe Statement Olga Wu Provider Attestation: All medical record entries made by the Scribe were at my direction and personally dictated by me. I have reviewed the chart and agree that the record accurately reflects my personal performance of the history, physical exam, medical decision making, and the department course for this patient. I have also personally directed, reviewed, and agree with the discharge instructions and disposition.
[2018-06-22 00:55] LABS: BASO # 0.1 K/uL (0.0-0.2); BASO % 0.8 % (0.0-2.0); EOS # 0.5 K/uL (0.0-0.7); LYMPH # 0.9 K/uL (1.0-4.3); MEAN CELL VOLUME 99.8 fL (81.0-99.0); MEAN CORPUSCULAR HEMOGLOBIN 34.4 pg (27.0-31.0); MEAN CORPUSCULAR HGB CONC 34.5 g/dL (33.0-37.0); MONO # 0.6 K/uL (0.0-0.8); MONO % 4.5 % (0.0-10.0); NEUT # 10.4 K/uL (1.8-7.0); NEUT % 83.7 % (50.0-75.0); NRBC % 0.1 % (0.0-2.0); PLATELET COUNT 287 K/uL (130-400); RBC 4.07 Mil/uL (3.80-5.20); RED CELL DISTRIBUTION WIDTH 12.9 % (11.5-14.5); SQUAMOUS EPITHIAL 1 /hpf (0-5); URINE BACTERIA RARE (<OCC); URINE BILIRUBIN NEGATIVE (NEGATIVE); URINE BLOOD NEGATIVE (NEGATIVE); URINE CLARITY Clear (Clear); URINE COLOR Yellow (YELLOW); URINE GLUCOSE (UA) NORMAL (Normal); URINE LEUKOCYTE ESTERASE 1+ Leu/uL (Negative); URINE PROTEIN NEGATIVE (NEGATIVE); URINE UROBILINOGEN NORMAL mg/dL (0.2-1.0); WHITE BLOOD COUNT 12.5 K/uL (4.8-10.8)
[2018-06-22 01:03] LABS: VENOUS BLOOD GAS BASE EXCESS 1.2 mmol/L (0.0-2.0); VENOUS BLOOD GAS PCO2 44 mmHg (40-60); VENOUS BLOOD GAS PO2 17 mm/Hg (30-55); VENOUS BLOOD PH 7.39 (7.32-7.43)
[2018-06-22] MEDS ORDERED: Albuterol 0.083% Inhal Sol (2.5 mg/3 mL) UD ONE (01:06)
[2018-06-22 01:09] LABS: INR 1.2; PROTHROMBIN TIME 12.7 SECONDS (9.7-12.2)
[2018-06-22 01:11] LABS: ALB/GLOB RATIO 1.2 (1.0-2.1); ALBUMIN 4.7 g/dL (3.5-5.0); BLOOD UREA NITROGEN 10 mg/dL (7-17); CALCIUM 9.5 mg/dl (8.6-10.4); GFR NON-AFRICAN AMERICAN > 60
[2018-06-22 01:13] LABS: ALT/SGPT 21 U/L (9-52); AST/SGOT 28 U/L (14-36)
[2018-06-22] MEDS: Albuterol-Ipratrop 3 mg / 0.5 (3 ml) UD IH SCH ×3 (01:14→01:52)
[2018-06-22 01:18] LABS: B-TYPE NATRIURETIC PEPTIDE 325 pg/mL (0-900)
[2018-06-22] MEDS ORDERED: Piperacillin/Tazobact 3.375 gm 100 ML IVPB STA (01:19)
[2018-06-22] MEDS ORDERED: Piperacillin/Tazobact 3.375 gm 100 ML IVPB ONE (01:38)
[2018-06-22 01:56] LABS: EOSINOPHIL 4 % (0-4); LYMPHOCYTE 8 % (20-40); MONOCYTE 4 % (0-10); NEUTROPHIL 84 % (50-75); PLATELET ESTIMATE NORMAL (NORMAL); TOTAL CELLS COUNTED 100
[2018-06-22 03:08] VITALS: BP 140/90; PULSE 84; RESP 16
--- NOTE | 2018-06-22 16:56 | RAD ---
Date of service: 06/22/2018 PROCEDURE: CHEST RADIOGRAPH, 1 VIEW HISTORY: SOB COMPARISON: 10/03/2017 FINDINGS: LUNGS: Clear. PLEURA: No pneumothorax or pleural fluid seen. CARDIOVASCULAR: No radiographic findings to suggest acute or significant cardiovascular disease. OSSEOUS STRUCTURES: No significant abnormalities. VISUALIZED UPPER ABDOMEN: Normal. OTHER FINDINGS: None. IMPRESSION: No active disease.No significant interval change compared to the prior examination(s). Concordant results with the preliminary interpretation rendered by the emergency department physician procedure.
--- NOTE | 2018-06-24 22:47 | CARD ---
APPROVED REPORT Date of service: 06/22/2018 EKG Measurement Heart [id number] <Conclusion> Normal sinus rhythm Prolonged QT Abnormal ECG
== END 2018-06-22 03:08 | disposition home or self-care (01) ==
LOC: C.ER 23:56
DX: J98.8 Other specified respiratory disorders (principal)
CPT/HCPCS: 71045; 80053; 81001; 82803; 83880; 85025; 85610; 85730; 87804; 93005; 94640; 96365; 99285; J2543

== ENCOUNTER 2019-01-17 13:13 | Emergency (ER) | payer MEDICARE, OTHER ==
[2019-01-17 13:21] VITALS: BMI 20.6
[2019-01-17 13:25] VITALS: RESP 18
[2019-01-17] MEDS: Albuterol-Ipratrop 3 mg / 0.5 (3 ml) UD IH SCH ×2 (14:00→14:16)
[2019-01-17] MEDS ORDERED: Albuterol-Ipratrop 3 mg / 0.5 (3 ml) UD ONE (14:09)
--- NOTE | 2019-01-17 14:29 | C.PDOC ---
History Of Present Illness 78 y/o female presents with complaints of a productive cough with white sputum and intermittent SOB over the past 3 days. Patient states she was sick with similar symptoms last year and diagnosed with bronchitis. She denies any fever, vomiting, abdominal pain, chest pain, rash, or recent travel. Time Seen by Provider: 01/17/19 13:29 Chief Complaint (Nursing): Cough, Cold, Congestion History Per: Patient History/Exam Limitations: no limitations Onset/Duration Of Symptoms: Days Current Symptoms Are (Timing): Still Present Past Medical History Reviewed: Historical Data, Nursing Documentation, Vital Signs Vital Signs: Last Vital Signs Temp 97.9 F 01/17/19 13:21 Pulse 80 01/17/19 13:21 Resp 18 01/17/19 13:21 BP 140/72 01/17/19 13:21 Pulse Ox 99 01/17/19 13:21 - Medical History PMH: Bronchitis, COPD, Diabetes, HTN, Pneumonia Family History: States: Unknown Family Hx - Social History Hx Tobacco Use: No Hx Alcohol Use: No Hx Substance Use: No - Immunization History Hx Tetanus Toxoid Vaccination: No Hx Influenza Vaccination: No Hx Pneumococcal Vaccination: No Review Of Systems Except As Marked, All Systems Reviewed And Found Negative. Constitutional: Negative for: Fever, Chills Cardiovascular: Negative for: Chest Pain, Palpitations Respiratory: Positive for: Cough, Shortness of Breath (intermittent), Sputum Gastrointestinal: Negative for: Vomiting, Abdominal Pain, Diarrhea Musculoskeletal: Negative for: Back Pain Skin: Negative for: Rash Neurological: Negative for: Weakness, Dizziness Physical Exam - Physical Exam Appears: Non-toxic, No Acute Distress, Other (Speaking in full sentences) Skin: Warm, Dry, No Rash Head: Atraumatic, Normacephalic Eye(s): bilateral: Normal Inspection, PERRL, EOMI Neck: Normal ROM Chest: Symmetrical Cardiovascular: Rhythm Regular, No Friction Rub, No Murmur Respiratory: No Accessory Muscle Use, Rhonchi (coarse rhonchi throughout, right > left), Wheezing (diffusely), Other (No respiratory distress) Gastrointestinal/Abdominal: Soft, No Tenderness, No Distention Extremity: Bilateral: Atraumatic, Normal Color And Temperature, Normal ROM Neurological/Psych: Oriented x3, Normal Speech ED Course And Treatment O2 Sat by Pulse Oximetry: 99 Pulse Ox Interpretation: Normal Medical Decision Making Medical Decision Making: Impression: cough, r/o pneumonia Initial Plan: - Chest x-ray - Duoneb x 1 INH - Reassess and repeat peak flow CXR findings discussed with patient. On reassessment patient reports improvement in symptoms and feels comfortable going home. On re-exam, the patient reports improvement of symptoms. Lungs are CTA, heart is RRR, abdomen is soft, non-tender and the patient is tolerating PO well.Will treat patient for bronchitis with antibiotics and oral prednisone. Follow up with the medical doctor within 1-2 days, Return if worsened. Disposition Counseled Patient/Family Regarding: Studies Performed, Diagnosis, Need For Followup, Rx Given - Disposition Referrals: Ran Ag MD [Medical Doctor] - Disposition: HOME/ ROUTINE Disposition Time: 15:34 Condition: GOOD Additional Instructions: Follow up with the medical doctor within 1-2 days. Return if worsened. Prescriptions: Albuterol HFA [Ventolin HFA 90 mcg/actuation (8 g)] 1 puff IH Q6 #100 puff Azithromycin [Zithromax] 250 mg PO DAILY #4 tab predniSONE [Prednisone] 20 mg PO BID #10 tab Spacer, Inhalation [Aerochamber] 1 dev IH Q4 #1 dev Instructions: Chronic Obstructive Pulmonary Disease (COPD), Including Emphysema Forms: [employer] (Maltese) Print Language: UKRAINIAN - Clinical Impression Clinical Impression: COPD (chronic obstructive pulmonary disease) with acute bronchitis - PA / [employer] / Resident Statement MD/DO has reviewed & agrees with the documentation as recorded. - Scribe Statement The provider has reviewed the documentation as recorded by the Harman Bass All medical record entries made by the Harman were at my direction and personally dictated by me. I have reviewed the chart and agree that the record accurately reflects my personal performance of the history, physical exam, medical decision making, and the department course for this patient. I have also personally directed, reviewed, and agree with the discharge instructions and disposition.
--- NOTE | 2019-01-17 14:32 | RAD ---
Date of service: 01/17/2019 HISTORY: Cough COMPARISON: 06/22/2018. TECHNIQUE: Chest PA and lateral FINDINGS: LINES AND TUBES: None. LUNG AND PLEURA: The lungs are hyperinflated and there is peribronchial thickening with chronic changes in both lungs. No focal consolidation. No pleural effusion or pneumothorax. HEART AND MEDIASTINUM: The heart is not enlarged. No aortic atherosclerotic calcifications present. The hilar and mediastinal contours are within normal limits. SKELETAL STRUCTURES: The bony structures are within normal limits for the patient's age. VISUALIZED UPPER ABDOMEN: Normal. OTHER FINDINGS: None. IMPRESSION: No active pulmonary disease. COPD.
[2019-01-17 15:37] VITALS: BP 140/82; PULSE 99; TEMP 98.5
[2019-01-17 16:05] VITALS: O2SAT 99
== END 2019-01-17 15:51 | disposition home or self-care (01) ==
LOC: C.ER 13:13
DX: J44.0 Chronic obstructive pulmonary disease with (acute) lower respiratory infection (principal); J20.9 Acute bronchitis, unspecified